=== PATIENT | female | born 1985 | race Asian ===

== ENCOUNTER 2022-08-07 20:42 | Emergency (ER) | payer OTHER ==
[~2022-08-07] VITALS: Ht 147.3 cm; Wt 50.0 kg
[2022-08-07 20:50] VITALS: BP 130/78
[2022-08-07] MEDS ORDERED: triamcinolone acetonide 40mg/ml inj IM ONE (22:15)
[2022-08-07] MEDS ORDERED: diphenhydrAMINE 25mg capsule PO ONE (22:15)
[2022-08-07] MEDS ORDERED: triamcinolone acet 0.1% cream 15gm TP ONE (22:15)
[2022-08-07] MEDS ORDERED: KEN0.1O TP (22:22)
== END 2022-08-07 22:44 | disposition home or self-care (01) ==
LOC: ER 20:44
DX: L29.9 Pruritus, unspecified (principal); T49.95XA Adverse effect of unspecified topical agent, initial encounter; Z56.0 Unemployment, unspecified; Y92.89 Other specified places as the place of occurrence of the external cause
CPT/HCPCS: 96372; 99283; J3301; Q0163